=== PATIENT | male | born 1945 | race Caucasian/White ===

== ENCOUNTER 2024-09-07 00:44 | Emergency (ER) | payer BC, MEDICARE ==
[2024-09-07] MEDS: Dexamethasone 4 MG/ML SDV IVPUSH ONE (01:10)
[2024-09-07 01:15] LABS: BASOPHILS PERCENT AUTO 0.5 % (0.0-1.0); EOSINOPHILS PERCENT AUTO 2.0 % (1.0-3.0); LYMPHOCYTES PERCENT AUTO 17.2 % (20.5-50.1); MONOCYTES PERCENT AUTO 10.8 % (2-8); NEUTROPHILS PERCENT AUTO 69.5 % (42.2-75.2); PLATELET COUNT,PLT 89 10^3/uL (150-450); RED BLOOD CELL COUNT 4.23 10^6/uL (4.6-6.2); WHITE BLOOD CELL COUNT,WBC 8.3 10^3/uL (5.0-10.0)
[2024-09-07 01:34] LABS: B-TYPE NATRIURETIC PEPTIDE,BNP 256.0 pg/ml (0-100)
[2024-09-07 01:36] LABS: A/G RATIO 1.0; ALANINE AMINOTRANSFERASE,ALT 21.0 U/L (16-63); ASPARTATE AMNIOTRANSFERASE,AST 22.0 U/L (15-37); BILIRUBIN TOTAL 2.2 mg/dL (0.2-1.0); BLOOD UREA NITROGEN,BUN 14.0 mg/dL (7-18); CARBON DIOXIDE,CO2 30.0 mmol/L (21-32); CHLORIDE,CL 96.0 mmol/L (98-107); CREATININE 1.61 mg/dL (0.70-1.30); EST CRCL DRUG DOSING (CG) 37.81 mL/min; GLUCOSE RANDOM 183.0 mg/dL (70-99); POTASSIUM,K 2.7 mmol/L (3.5-5.1); PROTEIN TOTAL,TP 7.2 g/dL (6.4-8.2); SODIUM,NA 136.0 mmol/L (136-145)
[2024-09-07 01:37] LABS: ESTIMATED GFR 44.0 mL/min (>=60)
== END 2024-09-07 03:04 | disposition home or self-care (01) ==
LOC: DL.ED 00:44
DX: T78.3XXA Angioneurotic edema, initial encounter (principal); Z88.8 Allergy status to other drugs, medicaments and biological substances
CPT/HCPCS: 36415; 80053; 83880; 84484; 85025; 96374; 96375; 99284; J1100; J1308